=== PATIENT | female | born 1970 | race Caucasian/White ===

== ENCOUNTER 2020-12-16 13:45 | Emergency (ER) | payer MEDICARE ==
[~2020-12-16] VITALS: Ht 142.2 cm; Wt 68.5 kg
[2020-12-16] MEDS ORDERED: ADULT ASPIRIN R81 MG PO (14:03)
[2020-12-16] MEDS ORDERED: ACETAZOLAMIDE250 MG PO (14:03)
[2020-12-16] MEDS ORDERED: LEXAPRO20 MG PO (14:04)
[2020-12-16] MEDS ORDERED: LOSARTAN POTASS25 MG PO (14:04)
[2020-12-16] MEDS ORDERED: FUROSEMIDE20 MG PO (14:04)
[2020-12-16] MEDS ORDERED: CARVEDILOL3.125 MG PO (14:05)
[2020-12-16] MEDS ORDERED: VENTOLIN HFA18 GM INH (14:05)
[2020-12-16] MEDS ORDERED: STIOLTO RESPIMAT4 GM INH (14:05)
[2020-12-16] MEDS ORDERED: TRAZODONE HCL50 MG PO (14:06)
--- NOTE | 2020-12-16 17:27 | EKG ---
[facility] [address] [facility] [place], [place] [address] Signed Normal sinus rhythm Left anterior fascicular block Minimal voltage criteria for LVH, may be normal variant Nonspecific T wave abnormality Abnormal ECG No previous ECGs available Confirmed by SHYAM DELEON DO ([id number]) on 12/16/2020 5:27:14 PM Electronically Signed By: SHYAM DELEON DO 12/16/20 1727 PATIENT NAME: JOSEPHINE GAO Electrocardiogram DATE OF : 70 PHYSICIAN: SHYAM DELEON DO REPORT #: [id number] REPORT IS CONFIDENTIAL AND NOT TO BE RELEASED WITHOUT AUTHORIZATION
== END 2020-12-16 17:00 | disposition home or self-care (01) ==
LOC: ED 13:45
DX: R07.89 Other chest pain (principal); I11.0 Hypertensive heart disease with heart failure; I50.9 Heart failure, unspecified; J44.9 Chronic obstructive pulmonary disease, unspecified; G47.30 Sleep apnea, unspecified; Z79.899 Other long term (current) drug therapy; Z79.82 Long term (current) use of aspirin
CPT/HCPCS: 71046; 80053; 84484; 85025; 93005; 93010; 99285-25

== ENCOUNTER 2021-04-29 20:04 | Emergency (ER) | payer MEDICARE, OTHER ==
[~2021-04-29] VITALS: Ht 142.2 cm; Wt 69.4 kg
[~2021-04-29 20:04] MED LIST: ACETAZOLAMIDE250 MG PO; ADULT ASPIRIN R81 MG PO; CARVEDILOL3.125 MG PO; FUROSEMIDE20 MG PO; LEXAPRO20 MG PO; LOSARTAN POTASS25 MG PO; STIOLTO RESPIMAT4 GM INH; TRAZODONE HCL50 MG PO; VENTOLIN HFA18 GM INH
[2021-04-29] MEDS ORDERED: VITAMIN C500 M4 PO (22:45)
[2021-04-29] MEDS ORDERED: CENTRUM ADULT120 MCG PO (22:46)
[2021-04-29] MEDS ORDERED: APPLE CIDER VI300 MG PO (22:46)
[2021-04-30] MEDS ORDERED: CEPHALEXIN500 MG PO (01:31)
== END 2021-04-30 01:50 | disposition home or self-care (01) ==
LOC: ED 20:04
DX: R31.9 Hematuria, unspecified (principal); I11.0 Hypertensive heart disease with heart failure; I50.9 Heart failure, unspecified; J44.9 Chronic obstructive pulmonary disease, unspecified; G47.30 Sleep apnea, unspecified; Z79.82 Long term (current) use of aspirin; Z79.899 Other long term (current) drug therapy
CPT/HCPCS: 74176; 80053; 81001; 85025; 87088; 99284-25

== ENCOUNTER 2022-03-10 13:31 | Inpatient (IN) | payer MEDICARE, OTHER ==
[~2022-03-10] VITALS: Ht 142.2 cm; Wt 66.7 kg
[~2022-03-10 13:31] MED LIST changes: +APPLE CIDER VI300 MG PO; +CENTRUM ADULT120 MCG PO; +CEPHALEXIN500 MG PO; +VITAMIN C500 M4 PO
[2022-03-11] MEDS ORDERED: TRELEGY ELLIPT1 EAC1 INH (08:19)
[2022-03-11] MEDS ORDERED: ESCITALOPRAM OX10 MG PO (08:20)
[2022-03-13] MEDS ORDERED: CEFPODOXIME PR200 MG PO (12:29)
[2022-03-13] MEDS ORDERED: SUDOGEST30 MG PO (12:30)
--- NOTE | 2022-03-17 13:07 | EKG ---
[facility] [address] [facility] [place] [address] Signed Sinus tachycardia with occasional premature ventricular complexes Left axis deviation Minimal voltage criteria for LVH, may be normal variant ( R in aVL ) Anterior infarct , age undetermined Abnormal ECG No previous ECGs available Confirmed by KALI GARCIA MD ([id number]) on 03/17/2022 1:07:05 PM Electronically Signed By: KALI GARCIA MD 03/17/22 1307 PATIENT NAME: JOSEPHINE GAO TAYO Electrocardiogram DATE OF : 70 PHYSICIAN: KALI GARCIA MD REPORT #: [id number] REPORT IS CONFIDENTIAL AND NOT TO BE RELEASED WITHOUT AUTHORIZATION
== END 2022-03-13 13:25 | disposition home or self-care (01) | DRG 871 ==
LOC: ED 13:31 → CCU 15:32 → MS 03-11 14:00
PROVIDERS: ADMIT Internal Medicine; ATTEND Internal Medicine
DX: A41.50 Gram-negative sepsis, unspecified (principal); J15.6 Pneumonia due to other Gram-negative bacteria; J96.01 Acute respiratory failure with hypoxia; I42.8 Other cardiomyopathies; J44.0 Chronic obstructive pulmonary disease with (acute) lower respiratory infection; F32.9 Major depressive disorder, single episode, unspecified; I11.0 Hypertensive heart disease with heart failure; Z98.890 Other specified postprocedural states; Z79.82 Long term (current) use of aspirin; Z79.899 Other long term (current) drug therapy; Z20.822 Contact with and (suspected) exposure to COVID-19; G47.30 Sleep apnea, unspecified; I50.9 Heart failure, unspecified
CPT/HCPCS: 36415; 71045; 80048; 80053; 81001; 83605; 85025; 85060; 85610; 85730; 86850; 86900; 86901; 87040; 87502; 93005; 93010; 94640; 94667; 94668; 94760; 96365; 96375; 99285-25; A9270; C9113; C9803; J0456; J0696; J0780; J2405; J2550; J7121; U0003

== ENCOUNTER 2022-09-07 00:46 | Emergency (ER) | payer MEDICARE, OTHER ==
[~2022-09-07] VITALS: Ht 142.2 cm; Wt 67.0 kg
[~2022-09-07 00:46] MED LIST changes: +CEFPODOXIME PR200 MG PO; +ESCITALOPRAM OX10 MG PO; +SUDOGEST30 MG PO; +TRELEGY ELLIPT1 EAC1 INH
--- NOTE | 2022-09-08 20:33 | EKG ---
[facility] [address] [place] [address] Signed Normal sinus rhythm with sinus arrhythmia Left axis deviation Moderate voltage criteria for LVH, may be normal variant ( R in aVL , [place] product ) Nonspecific T wave abnormality Abnormal ECG When compared with ECG of 10-MAR-2022 13:51, premature ventricular complexes are no longer present Vent. rate has decreased BY [address] no longer depressed in Lateral leads T wave inversion less evident in Lateral leads Confirmed by Tatiana Carlisle MD () on 09/08/2022 8:33:41 PM Electronically Signed By: TATIANA CARLISLE MD 09/08/222032 PATIENT NAME: JOSEPHINE GAO Electrocardiogram DATE OF : 70 PHYSICIAN: TATIANA CARLISLE MD REPORT #: [id number] REPORT IS CONFIDENTIAL AND NOT TO BE RELEASED WITHOUT AUTHORIZATION
== END 2022-09-07 02:02 | disposition home or self-care (01) ==
LOC: ED 00:46
DX: R07.89 Other chest pain (principal); I11.0 Hypertensive heart disease with heart failure; I50.9 Heart failure, unspecified; J44.9 Chronic obstructive pulmonary disease, unspecified; G47.30 Sleep apnea, unspecified; Z79.899 Other long term (current) drug therapy; Z79.82 Long term (current) use of aspirin
CPT/HCPCS: 36415; 71045; 80053; 84484; 85025; 85379; 93005; 93010; 99285-25

== ENCOUNTER 2024-05-12 06:00 | Emergency (ER) | payer MEDICARE, OTHER ==
[~2024-05-12] VITALS: Ht 142.2 cm; Wt 79.6 kg
[~2024-05-12 06:00] MED LIST changes: +PRILOSEC OTC20 MG PO
[2024-05-12 06:28] LABS: BASOPHILS 0.7 % (0-2); HEMATOCRIT 44.8 % (35.0-50.0); HEMOGLOBIN 14.7 g/dL (12.0-18.0); LYMPHOCYTES 23.1 % (24-44); MCH 29.8 (27-36); MCHC 32.8 g/dl (30-36); MCV 90.8 fl (81-99); MONOCYTES 6.8 % (0-12); NEUTROPHILS 68.4 % (39-80); PLATELET COUNT 243 K/uL (140-440); RBC 4.94 M/ul (4.3-5.7); RDW 15.1 (10.5-15.0)
[2024-05-12] MEDS ORDERED: FUROSEMIDE 20 MG/2 ML VIAL IV ONE (06:30)
[2024-05-12] MEDS ORDERED: ASPIRIN 325 MG TAB PO ONE (06:30)
[2024-05-12] MEDS ORDERED: NITROGLYCERIN 0.4 MG SUBL SL PRN (06:30)
[2024-05-12 06:37] LABS: PROTIME 12.8 Sec (11.2-14.2)
[2024-05-12] MEDS ORDERED: ALBUTEROL/IPRATROPIUM 3 ML NEB INH ONE (06:45)
[2024-05-12 06:49] LABS: ALBUMIN 3.6 g/dL (3.4-5.0); ALBUMIN/GLOBULIN RATIO 0.88 (1.1-2.4); ANION GAP 9.8 (7-21); BILIRUBIN, TOTAL 0.3 ng/dL (0.2-1.0); BUN/CREATININE RATIO 13.09 (6.0-28.6); CALCIUM 8.6 mg/dL (8.5-10.1); CREATININE, SERUM 0.84 mg/dL (0.55-1.02); MAGNESIUM 2.1 mg/dL (1.8-2.4); POTASSIUM 3.8 mmol/L (3.5-5.1); PROTEIN, TOTAL 7.7 g/dL (6.4-8.2)
[2024-05-12 08:44] VITALS: BP 116/66
--- NOTE | 2024-05-14 19:51 | EKG ---
[facility] [address] [facility] [place] [address] Signed Sinus tachycardia Right atrial enlargement Left axis deviation Pulmonary disease pattern ST \T\ T wave abnormality, consider lateral ischemia Abnormal ECG When compared with ECG of 01-MAY-2023 22:22, Significant changes have occurred Confirmed by Ruba Mcgee MD ([id number]) on 05/14/2024 7:51:45 PM Electronically Signed By: RUBA MCGEE MD 05/14/241950 PATIENT NAME: JOSEPHINE GAO Electrocardiogram DATE OF : 70 PHYSICIAN: RUBA MCGEE MD REPORT #: [id number] REPORT IS CONFIDENTIAL AND NOT TO BE RELEASED WITHOUT AUTHORIZATION
== END 2024-05-12 08:46 | disposition home or self-care (01) ==
LOC: ED 06:00
PROVIDERS: Emergency Medicine
DX: R07.89 Other chest pain (principal); I11.0 Hypertensive heart disease with heart failure; I50.9 Heart failure, unspecified; J06.9 Acute upper respiratory infection, unspecified; J44.9 Chronic obstructive pulmonary disease, unspecified; G47.30 Sleep apnea, unspecified; Z79.82 Long term (current) use of aspirin; Z79.899 Other long term (current) drug therapy
CPT/HCPCS: 36415; 71045; 80053; 83735; 83880; 84484; 85025; 85379; 85610; 85730; 93005; 93010; 94640; 96374; 99285-25; J1940

== ENCOUNTER 2024-05-21 09:53 | Emergency (ER) | payer MEDICARE, OTHER ==
[~2024-05-21] VITALS: Ht 142.2 cm; Wt 78.8 kg
--- OUTSIDE RECORDS SUMMARY | 2024-05-21 09:54 | XMS ---
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 EShabbir VISIT COUNT (12 MO.) 2 [facility] [place] TOTAL 2 NOTE: Visits indicate total known visits. 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
[2024-05-21] MEDS ORDERED: FUROSEMIDE40 MG PO (10:13)
[2024-05-21 10:34] LABS: BASOPHILS 0.3 % (0-2); EOSINOPHILS 0.5 % (0-6); HEMATOCRIT 42.1 % (35.0-50.0); HEMOGLOBIN 13.6 g/dL (12.0-18.0); MCH 29.4 (27-36); MCHC 32.3 g/dl (30-36); MCV 90.9 fl (81-99); MONOCYTES 8.8 % (0-12); NEUTROPHILS 74.4 % (39-80); PLATELET COUNT 214 K/uL (140-440); RBC 4.63 M/ul (4.3-5.7); RDW 15.4 (10.5-15.0)
[2024-05-21] MEDS ORDERED: ALBUTEROL/IPRATROPIUM 3 ML NEB INH ONE ×2 (10:45→14:00)
[2024-05-21] MEDS ORDERED: methylPREDNISolone SOD SUCC 125 MG/2 ML VIAL IV ONE (10:45)
[2024-05-21] MEDS ORDERED: FUROSEMIDE 40 MG/4 ML VIAL IV ONE (10:45)
[2024-05-21 10:53] LABS: ALBUMIN 3.3 g/dL (3.4-5.0); ALBUMIN/GLOBULIN RATIO 0.89 (1.1-2.4); ANION GAP 9.8 (7-21); BILIRUBIN, TOTAL 0.4 ng/dL (0.2-1.0); BUN/CREATININE RATIO 18.82 (6.0-28.6); CALCIUM 9.1 mg/dL (8.5-10.1); CREATININE, SERUM 0.85 mg/dL (0.55-1.02); MAGNESIUM 2.1 mg/dL (1.8-2.4); POTASSIUM 3.8 mmol/L (3.5-5.1)
[2024-05-21 12:00] LABS: INFLUENZA B NAA NEGATIVE (NEGATIVE); RESPIRATORY SYNCYTIAL VIR NAA NEGATIVE (NEGATIVE)
[2024-05-21] MEDS ORDERED: PREDNISONE20 MG PO (13:55)
[2024-05-21] MEDS ORDERED: LASIX20 MG PO (13:55)
[2024-05-21 14:20] VITALS: BP 101/62
--- NOTE | 2024-05-23 21:37 | EKG ---
[facility] [address] [facility] [place] [address] Signed Normal sinus rhythm Left axis deviation Nonspecific T wave abnormality Abnormal ECG When compared with ECG of 12-MAY-2024 06:10, No significant change was found Confirmed by Dirk Xvaier MD ([id number]) on 05/23/2024 9:36:49 PM Electronically Signed By: DIRK XAVIER DO 05/23/242136 PATIENT NAME: JOSEPHINE GAO Electrocardiogram DATE OF : 70 PHYSICIAN: DIRK XAVIER DO REPORT #: [id number] REPORT IS CONFIDENTIAL AND NOT TO BE RELEASED WITHOUT AUTHORIZATION
== END 2024-05-21 14:22 | disposition home or self-care (01) ==
LOC: ED 09:53
PROVIDERS: Emergency Medicine
DX: J44.1 Chronic obstructive pulmonary disease with (acute) exacerbation (principal); I11.0 Hypertensive heart disease with heart failure; I50.9 Heart failure, unspecified; G47.30 Sleep apnea, unspecified; Z79.82 Long term (current) use of aspirin; Z79.899 Other long term (current) drug therapy
CPT/HCPCS: 36415; 71045; 80053; 83735; 83880; 84484; 85025; 87502; 93005; 93010; 94640; 96374; 96375; 99285-25; J1940; J2919; U0002

== ENCOUNTER 2024-07-09 13:30 | Emergency (ER) | payer MEDICARE, OTHER ==
[~2024-07-09] VITALS: Ht 142.2 cm; Wt 79.0 kg
[~2024-07-09 13:30] MED LIST changes: +FUROSEMIDE40 MG PO; +LASIX20 MG PO; +PREDNISONE20 MG PO
[2024-07-09] MEDS ORDERED: ALBUTEROL/IPRATROPIUM 3 ML NEB INH PRN (14:00)
[2024-07-09 14:09] LABS: BASOPHILS 0.2 % (0-2); EOSINOPHILS 0.6 % (0-6); HEMATOCRIT 44.1 % (35.0-50.0); HEMOGLOBIN 14.4 g/dL (12.0-18.0); LYMPHOCYTES 16.3 % (24-44); MCH 29.8 (27-36); MCHC 32.7 g/dl (30-36); MCV 91.1 fl (81-99); MONOCYTES 9.6 % (0-12); NEUTROPHILS 73.3 % (39-80); PLATELET COUNT 211 K/uL (140-440); RBC 4.84 M/ul (4.3-5.7); RDW 15.8 (10.5-15.0)
[2024-07-09 14:36] LABS: ALBUMIN 3.5 g/dL (3.4-5.0); ALBUMIN/GLOBULIN RATIO 0.97 (1.1-2.4); ANION GAP 5.5 (7-21); BILIRUBIN, TOTAL 0.6 ng/dL (0.2-1.0); BUN/CREATININE RATIO 15.21 (6.0-28.6); CALCIUM 8.8 mg/dL (8.5-10.1); CREATININE, SERUM 0.92 mg/dL (0.55-1.02); POTASSIUM 3.5 mmol/L (3.5-5.1); PROTEIN, TOTAL 7.1 g/dL (6.4-8.2)
[2024-07-09] MEDS ORDERED: IDARUCIZUMAB 2.5 GM/50 ML VIAL IV ONE (14:45)
[2024-07-09] MEDS ORDERED: PANTOPRAZOLE SODIUM 40 MG/10 ML VIAL IV ONE (14:45)
[2024-07-09 16:54] VITALS: BP 87/65
--- NOTE | 2024-07-11 19:18 | EKG ---
[facility] [address] [facility] [place] [address] Signed Sinus rhythm with premature supraventricular complexes and with occasional premature ventricular complexes Biatrial enlargement Left axis deviation Anterior infarct , age undetermined Abnormal ECG When compared with ECG of 21-MAY-2024 10:32, premature ventricular complexes are now present premature supraventricular complexes are now present QT has lengthened Confirmed by Ruba Mcgee MD ([id number]) on 07/11/2024 7:18:33 PM Electronically Signed By: RUBA MCGEE MD 07/11/241917 PATIENT NAME: JOSEPHINE GAO Electrocardiogram DATE OF : 70 PHYSICIAN: RUBA MCGEE MD REPORT #: [id number] REPORT IS CONFIDENTIAL AND NOT TO BE RELEASED WITHOUT AUTHORIZATION
== END 2024-07-09 17:00 | disposition home or self-care (01) ==
LOC: ED 13:30
PROVIDERS: Emergency Medicine
DX: I11.0 Hypertensive heart disease with heart failure (principal); I50.9 Heart failure, unspecified; J44.9 Chronic obstructive pulmonary disease, unspecified; G47.30 Sleep apnea, unspecified; I42.8 Other cardiomyopathies; Z79.82 Long term (current) use of aspirin; Z79.899 Other long term (current) drug therapy
CPT/HCPCS: 36415; 71045; 80053; 83735; 83880; 84484; 85025; 93005; 93010; 94640; 99285-25

== ENCOUNTER 2024-07-29 10:03 | Emergency (ER) | payer MEDICARE, OTHER ==
[~2024-07-29] VITALS: Ht 142.2 cm; Wt 77.4 kg
--- OUTSIDE RECORDS SUMMARY | 2024-07-29 10:10 | XMS ---
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 EShabbir VISIT COUNT (12 MO.) [address] [facility] [address] TOTAL 4 NOTE: Visits indicate total known visits. 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 - Other cardiomyopathies - Other fdc (current) drug therapy - Shortness of breath - Sleep apnea, unspecified 05/21/2024 09:53 [facility] TYPE: Emergency COMPLAINT: - SHORTNESS OF BREATH DIAGNOSES: - Chronic obstructive pulmonary disease with (acute) exacerbation - Heart failure, unspecified - Hypertensive heart disease with heart failure - 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 - Other fdc (current) drug therapy - Shortness of breath - Sleep apnea, unspecified 05/12/2024 06:00 [facility] [place] TYPE: Emergency COMPLAINT: - CHEST PAIN/SOB DIAGNOSES: - Acute upper respiratory infection, unspecified - Chronic obstructive pulmonary disease, unspecified - Heart failure, unspecified - Hypertensive heart disease with heart failure - halfway (current) use of aspirin - Other chest pain - 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
[2024-07-29] MEDS ORDERED: ondansetron HCL 4 MG/2 ML VIAL ONE ×2 (10:34→11:19)
[2024-07-29 10:45] LABS: PARTIAL THROMBOPLASTIN TIME 23.5 Sec (22.9-41.3)
[2024-07-29] MEDS ORDERED: LOSARTAN POTASSIUM 25 MG TAB PO ONE (10:45)
[2024-07-29] MEDS ORDERED: methylPREDNISolone SOD SUCC 125 MG/2 ML VIAL IV ONE (10:45)
[2024-07-29] MEDS ORDERED: carvediloL 3.125 MG TAB PO ONE (10:45)
[2024-07-29] MEDS ORDERED: ALBUTEROL/IPRATROPIUM 3 ML NEB INH ONE (10:45)
[2024-07-29] MEDS ORDERED: ondansetron HCL 4 MG/2 ML VIAL IV ONE ×2 (10:45→11:30)
[2024-07-29] MEDS ORDERED: FUROSEMIDE 40 MG/4 ML VIAL IV ONE (10:45)
[2024-07-29 10:46] LABS: INR 1.09 (0.80-1.30); PROTIME 13.4 Sec (11.2-14.2)
[2024-07-29 10:47] LABS: BASOPHILS 0.1 % (0-2); EOSINOPHILS 0.3 % (0-6); HEMATOCRIT 43.4 % (35.0-50.0); HEMOGLOBIN 13.8 g/dL (12.0-18.0); LYMPHOCYTES 10.9 % (24-44); MCH 29.5 (27-36); MCHC 31.9 g/dl (30-36); MCV 92.7 fl (81-99); MONOCYTES 5.2 % (0-12); NEUTROPHILS 83.5 % (39-80); PLATELET COUNT 229 K/uL (140-440); RBC 4.69 M/ul (4.3-5.7); RDW 15.7 (10.5-15.0)
[2024-07-29 11:01] LABS: ALBUMIN 3.5 g/dL (3.4-5.0); ALBUMIN/GLOBULIN RATIO 0.83 (1.1-2.4); ANION GAP 10.1 (7-21); BILIRUBIN, TOTAL 0.9 ng/dL (0.2-1.0); BUN/CREATININE RATIO 20.25 (6.0-28.6); CALCIUM 9.4 mg/dL (8.5-10.1); CREATININE, SERUM 0.79 mg/dL (0.55-1.02); MAGNESIUM 1.8 mg/dL (1.8-2.4); POTASSIUM 4.1 mmol/L (3.5-5.1); PROTEIN, TOTAL 7.7 g/dL (6.4-8.2)
[2024-07-29 11:48] LABS: INFLUENZA B NAA NEGATIVE (NEGATIVE); RESPIRATORY SYNCYTIAL VIR NAA NEGATIVE (NEGATIVE)
[2024-07-29] MEDS ORDERED: PROCHLORPERAZINE EDISYLATE 10 MG/2 ML VIAL IV ONE (12:00)
[2024-07-29 12:05] LABS: BILIRUBIN, URINE NEGATIVE (negative); BLOOD/HGB, URINE NEGATIVE (Negative); KETONE, URINE NEGATIVE (Negative); LEUK ESTERASE, URINE NEGATIVE (negative); NITRITE, URINE NEGATIVE (negative); PH, URINE 5.5 (5-7)
[2024-07-29 12:14] LABS: BACTERIA, URINE RARE /hpf (negative); EPITHELIAL CELLS, URINE SQUAMOUS 2+ /lpf (0-1+); RED BLOOD CELLS, URINE 0-1 /hpf (0-5); WHITE BLOOD CELLS, URINE 0-1 /HPF (0-5)
[2024-07-29 12:15] LABS: REFLEX CULTURE, URINE No (No)
[2024-07-29 12:24] LABS: AMPHETAMINES, URINE NEGATIVE (NEGATIVE); BARBITURATES, URINE NEGATIVE (NEGATIVE); BENZODIAZEPINE, URINE NEGATIVE (NEGATIVE); BUPRENORPHINE, URINE NEGATIVE (NEGATIVE); CANNABINOID, URINE NEGATIVE (NEGATIVE); COCAINE, URINE NEGATIVE (NEGATIVE); ECSTASY, URINE NEGATIVE (NEGATIVE); FENTANYL, URINE NEGATIVE (NEGATIVE); METHADONE, URINE NEGATIVE (NEGATIVE); OPIATES, URINE NEGATIVE (NEGATIVE); OXYCODONE, URINE NEGATIVE (NEGATIVE); PHENCYCLIDINE, URINE NEGATIVE (NEGATIVE)
[2024-07-29 13:01] LABS: BASE EXCESS, BLOOD GAS 3.8 mmol/L (-2-2); HCO3, BLOOD GAS 40.3 mmol/L (22-26); O2 SATURATION, BLOOD GAS 95.7 % (95.0-100.0); PH, BLOOD GAS 7.03 (7.35-7.45); PO2, BLOOD GAS 115 mmHg (80-100)
[2024-07-29 13:03] LABS: OXYGEN RECEIVED, BLOOD GAS 4L
[2024-07-29] MEDS ORDERED: ALBUTEROL SULFATE 0.5% 2.5 MG/0.5 ML VIAL ONE (13:49)
[2024-07-29] MEDS ORDERED: MAGNESIUM SULFATE 2 GM/50 ML BAG IV ONE (14:00)
[2024-07-29] MEDS ORDERED: ALBUTEROL SULFATE 0.5% 2.5 MG/0.5 ML VIAL INH ONE (14:00)
[2024-07-29] MEDS ORDERED: KETAMINE in NS 50 MG/5 ML SYR IV ONE ×2 (14:00→17:15)
[2024-07-29] MEDS ORDERED: IPRATROPIUM BROMIDE 2.5 ML VIAL INH ONE (14:00)
[2024-07-29] MEDS ORDERED: KETAMINE HCL IN NACL, ISO-OSM 100 ML IV SCH ×2 (14:00→19:30)
[2024-07-29] MEDS ORDERED: NOREPINEPHRINE BITARTRATE 250 ML IV SCH (14:30)
[2024-07-29] MEDS ORDERED: KETAMINE in NS 50 MG/5 ML SYR ONE ×2 (14:51→17:05)
[2024-07-29 15:01] LABS: PH, VENOUS 7.207 (7.31-7.41)
[2024-07-29] MEDS ORDERED: ALBUTEROL/IPRATROPIUM 3 ML NEB INH PRN (16:00)
[2024-07-29 18:45] LABS: PH, VENOUS 7.292 (7.31-7.41)
[2024-07-29] MEDS ORDERED: LIDOCAINE 2% VISCOUS 6 ML SYR TOP ONE (19:45)
[2024-07-29] MEDS ORDERED: ETOMIDATE 40 MG/20 ML VIAL IV ONE (20:00)
[2024-07-29] MEDS ORDERED: SUCCINYLCHOLINE CHLORIDE 20 MG/ML MDV IV PRN (20:00)
[2024-07-29] MEDS ORDERED: SUCCINYLCHOLINE CHLORIDE 20 MG/ML MDV IV ONE (20:00)
[2024-07-29 21:14] VITALS: BP 133/67
--- NOTE | 2024-08-02 12:05 | EKG ---
[facility] [address] [facility] [place] [address] Signed Sinus tachycardia Biatrial enlargement Left axis deviation Pulmonary disease pattern ST \T\ T wave abnormality, consider lateral ischemia Abnormal ECG When compared with ECG of 09-JUL-2024 14:00, premature ventricular complexes are no longer present premature supraventricular complexes are no longer present Nonspecific T wave abnormality no longer evident in Inferior leads T wave inversion less evident in Lateral leads Confirmed by Gena Hugo MD ([id number]) on 08/02/2024 12:05:28 PM Electronically Signed By: GENA HUGO 08/02/24 1205 PATIENT NAME: JOSEPHINE GAO Electrocardiogram DATE OF : 70 PHYSICIAN: GENA HUGO REPORT #: [id number] REPORT IS CONFIDENTIAL AND NOT TO BE RELEASED WITHOUT AUTHORIZATION
== END 2024-07-29 21:17 | disposition short-term general hospital (02) ==
LOC: ED 10:03
PROVIDERS: Emergency Medicine
DX: J44.1 Chronic obstructive pulmonary disease with (acute) exacerbation (principal); J96.91 Respiratory failure, unspecified with hypoxia; I11.0 Hypertensive heart disease with heart failure; I50.9 Heart failure, unspecified; J44.9 Chronic obstructive pulmonary disease, unspecified; G47.30 Sleep apnea, unspecified; Z99.81 Dependence on supplemental oxygen; Z79.51 Long term (current) use of inhaled steroids; Z79.82 Long term (current) use of aspirin; Z79.899 Other long term (current) drug therapy
CPT/HCPCS: 31500; 36415; 36600; 51702; 71045; 71260; 80053; 80307; 81001; 82803; 83735; 83880; 84484; 85025; 85610; 85730; 87502; 93005; 93010; 94640; 94644; 99291; 99292; J0330; J0780; J1940; J2405; J2919; J3475; J3490; Q9967; U0002

== ENCOUNTER 2024-10-30 23:06 | Emergency (ER) | payer MEDICARE, OTHER ==
[~2024-10-30] VITALS: Ht 142.2 cm; Wt 75.0 kg
[2024-10-30 23:27] LABS: BASOPHILS 0.5 % (0-2); EOSINOPHILS 1.6 % (0-6); HEMATOCRIT 38.5 % (35.0-50.0); HEMOGLOBIN 13.2 g/dL (12.0-18.0); LYMPHOCYTES 26.5 % (24-44); MCH 30.6 (27-36); MCHC 34.2 g/dl (30-36); MCV 89.6 fl (81-99); MONOCYTES 7.8 % (0-12); NEUTROPHILS 63.6 % (39-80); PLATELET COUNT 236 K/uL (140-440)
[2024-10-30] MEDS ORDERED: TORSEMIDE20 MG PO (23:32)
[2024-10-30] MEDS ORDERED: ELIQUIS5 MG PO (23:33)
[2024-10-31 00:07] LABS: ALBUMIN 3.4 g/dL (3.4-5.0); ALBUMIN/GLOBULIN RATIO 0.92 (1.1-2.4); ANION GAP 7.6 (7-21); BILIRUBIN, TOTAL 0.5 mg/dL (0.2-1.0); BUN/CREATININE RATIO 18.66 (6.0-28.6); CREATININE, SERUM 0.75 mg/dL (0.55-1.02); MAGNESIUM 1.9 mg/dL (1.8-2.4); POTASSIUM 3.6 mmol/L (3.5-5.1); PROTEIN, TOTAL 7.1 g/dL (6.4-8.2)
[2024-10-31 00:42] LABS: INFLUENZA B NAA NEGATIVE (NEGATIVE); RESPIRATORY SYNCYTIAL VIR NAA NEGATIVE (NEGATIVE)
[2024-10-31] MEDS ORDERED: CYCLOBENZAPRINE10 MG PO (00:58)
[2024-10-31 01:17] VITALS: BP 94/61
--- NOTE | 2024-10-31 22:47 | EKG ---
[facility] [address] [place] [address] Signed Normal sinus rhythm Left axis deviation Minimal voltage criteria for LVH, may be normal variant ( R in aVL ) Nonspecific ST and T wave abnormality Abnormal ECG When compared with ECG of 29-JUL-2024 10:13, Vent. rate has decreased Confirmed by Tatiana Carlisle MD () on 10/31/2024 10:47:24 PM Electronically Signed By: TATIANA CARLISLE MD 10/31/24 2247 PATIENT NAME: JOSEPHINE GAO Electrocardiogram DATE OF : 70 PHYSICIAN: TATIANA CARLISLE MD REPORT #: [id number] REPORT IS CONFIDENTIAL AND NOT TO BE RELEASED WITHOUT AUTHORIZATION
== END 2024-10-31 01:13 | disposition home or self-care (01) ==
LOC: ED 23:06
PROVIDERS: Family Medicine
DX: R07.89 Other chest pain (principal); I11.0 Hypertensive heart disease with heart failure; I50.9 Heart failure, unspecified; J44.9 Chronic obstructive pulmonary disease, unspecified; G47.30 Sleep apnea, unspecified; Z79.51 Long term (current) use of inhaled steroids; Z79.899 Other long term (current) drug therapy
CPT/HCPCS: 36415; 71045; 80053; 83735; 83880; 84484; 85025; 87502; 93005; 93010; 99285-25; U0002